=== PATIENT | female | born 1935 | race Caucasian/White ===

== ENCOUNTER 2016-03-16 12:38 | Inpatient (IN) | payer MEDICARE, BC ==
[~2016-03-16] VITALS: Ht 167.6 cm; Wt 76.6 kg
[~2016-03-16 12:38] MED LIST: ASPIRIN 32325 MG/TA1 PO; CELEXA 20MG20 MG/TAB PO; CEPHALEXIN250 M1 PO; COLACE 100100 MG/CAP PO; COZAAR 50MG50 MG/TAB PO; DITROPAN 5MG TAB5 MG PO; DULCOLAX S10 MG/SUPP RC; LIPITOR 40MG TA40 MG PO; LOVENOX 4040 MG/0.4 SQ; MEVACOR40 MG PO; MIRALAX PA17 GM/Dose PO; MULTI VITAMINS1 TAB PO; NYAMYC100000 U/G TOP; OS-CAL 500 + D1 TAB PO; PEPCID 20MG TAB20 MG PO; PRILOSEC 20MG20 MG PO; PROTONIX 40MG T40 MG PO; SENOKOT S 50 MG1 TAB PO; TRIPLE ANTIBIOTI1 TU TP; TYLENOL 325MG325 MG PO; ZOFRAN 4MG T4 MG/TAB PO
[2016-03-16 14:01] VITALS: BP 134/75; PULSE 79; TEMP 98.7
[2016-03-16] MEDS ORDERED: LOVENOX 4040 MG/0.4 SQ (14:21)
[2016-03-16] MEDS ORDERED: ZOFRAN 4MG T4 MG/TAB PO (14:23)
[2016-03-16] MEDS ORDERED: PRILOSEC 20MG20 MG PO (14:25)
[2016-03-16 17:38] VITALS: BP 117/73; PULSE 94; TEMP 98.9
[2016-03-17 05:22] VITALS: BP 163/91; PULSE 93; TEMP 98.1
[2016-03-17 15:42] LABS: PH 6 (5-8); SQUAMOUS EPITHELIAL None Seen /hpf; URINE APPEARANCE Cloudy; URINE BACTERIA Rare /hpf; URINE BILIRUBIN Negative (NEGATIVE); URINE BLOOD Negative (NEGATIVE); URINE COLOR Yellow; URINE GLUCOSE Negative (NEGATIVE); URINE KETONE Trace (NEGATIVE); URINE RBC 0-2 /hpf; URINE UROBILINOGEN >=4.0 mg/dL (NEGATIVE)
[2016-03-17 16:17] VITALS: BP 122/58; PULSE 79; TEMP 98.8
[2016-03-18 04:15] VITALS: BP 125/75; PULSE 87; TEMP 97.7
[2016-03-18 16:04] VITALS: BP 108/61; PULSE 77; TEMP 98.3
[2016-03-19 05:06] VITALS: BP 113/53; PULSE 85; TEMP 98.3
[2016-03-19 17:38] VITALS: BP 143/71; PULSE 77; TEMP 98.5
[2016-03-20 05:30] VITALS: BP 135/80; PULSE 76; TEMP 98.2
[2016-03-20 08:07] LABS: BASO % 0.9 % (0.0-2.0); EOS # 0.2 (0.0-0.7); EOS % 3.8 % (0-4.0); GRAN # 2.1 (1.4-6.5); GRAN % 50.1 % (42.2-75.2); LYMPH # 1.5 (1.2-3.4); LYMPH % 35.6 % (20.0-51.0); MEAN CELL VOLUME 81 fl (80.0-100.0); MEAN CORPUSCULAR HGB CONC 30 g/dl (33.0-37.0); MEAN PLATELET VOLUME 13.4 fl (7.4-10.4); MONO # 0.4 (0.1-0.6); MONO % 9.4 % (1.7-9.3); PLATELET COUNT 186 K/mm3 (130-400); REDCELL DISTRIBUTION WIDTH-CV 16.9 % (11.5-14.5); WHITE BLOOD COUNT 4.2 K/mm3 (4.8-10.8)
[2016-03-20 08:11] LABS: HEMATOCRIT 30.8 % (37.0-47.0); HEMOGLOBIN 9.3 g/dl (12.5-16.0); MEAN CORPUSCULAR HEMOGLOBIN 24 pg (27.0-31.0)
[2016-03-20 09:14] LABS: ADJUSTED CALCIUM 9.4 mg/dL (8.4-10.2); ALBUMIN 3.5 gm/dL (3.5-5.0); BILIRUBIN,TOTAL 0.7 mg/dL (0.0-1.0); CREATININE, serum 0.64 mg/dL (0.52-1.25); MAGNESIUM 2.1 mg/dL (1.6-2.3); PHOSPHOROUS 3.5 mg/dL (2.5-4.5); POTASSIUM 3.9 mmol/L (3.4-5.0); TOTAL PROTEIN 6.5 gm/dL (6.4-8.2)
[2016-03-20 16:16] VITALS: BP 108/75; PULSE 81; TEMP 99.1
[2016-03-21 05:38] VITALS: BP 108/62; PULSE 79; TEMP 98.1
[2016-03-21 18:31] VITALS: BP 105/72; PULSE 82; TEMP 98.7
[2016-03-21 20:30] VITALS: BP 143/76; PULSE 81; TEMP 98.8
[2016-03-22 06:21] VITALS: BP 152/88; PULSE 104; TEMP 98.5
[2016-03-22 17:05] VITALS: BP 133/85; PULSE 83; TEMP 97.7
[2016-03-23 03:31] VITALS: BP 125/87; PULSE 80; TEMP 98.6
[2016-03-23 16:36] VITALS: BP 134/64; PULSE 65; TEMP 98.3
[2016-03-24 04:34] VITALS: BP 141/82; PULSE 78; TEMP 97.3
[2016-03-24 18:58] VITALS: BP 129/115; PULSE 73; TEMP 97.9
[2016-03-25 06:08] VITALS: BP 144/66; PULSE 78; TEMP 97.8
[2016-03-25 16:33] VITALS: BP 132/84; PULSE 75; TEMP 98.7
[2016-03-26 04:32] VITALS: BP 132/83; PULSE 73; TEMP 98.1
[2016-03-26 17:44] VITALS: BP 116/66; PULSE 86; TEMP 98.5
[2016-03-27 06:07] VITALS: BP 131/68; PULSE 71; TEMP 97.7
[2016-03-27 07:57] LABS: ADJUSTED CALCIUM 9.5 mg/dL (8.4-10.2); ALBUMIN 3.7 gm/dL (3.5-5.0); CALCIUM 9.3 mg/dL (8.4-10.2); CREATININE, serum 0.66 mg/dL (0.52-1.25); MAGNESIUM 2.2 mg/dL (1.6-2.3); PHOSPHOROUS 4.1 mg/dL (2.5-4.5); POTASSIUM 4.1 mmol/L (3.4-5.0); TOTAL PROTEIN 6.9 gm/dL (6.4-8.2)
[2016-03-27 18:22] VITALS: BP 122/72; PULSE 92; TEMP 98.2
[2016-03-28 04:16] VITALS: BP 118/92; PULSE 64; TEMP 98.5
[2016-03-28 17:02] VITALS: BP 120/100; PULSE 52; TEMP 99
[2016-03-29 05:08] VITALS: BP 118/72; PULSE 78; TEMP 98.3
[2016-03-29 17:26] VITALS: BP 97/67; PULSE 87; TEMP 97.7
[2016-03-30 03:19] VITALS: BP 122/62; PULSE 76; TEMP 97.8
[2016-03-30 16:23] VITALS: BP 105/72; PULSE 70; TEMP 98.1
[2016-03-31 03:15] VITALS: BP 152/80; PULSE 76; TEMP 97.9
[2016-03-31 16:30] VITALS: BP 111/75; PULSE 73; TEMP 98
[2016-04-01 04:26] VITALS: BP 107/87; PULSE 76; TEMP 97.9
[2016-04-01 16:41] VITALS: BP 132/69; PULSE 72; TEMP 97.5
[2016-04-02 04:49] VITALS: BP 136/61; PULSE 72; TEMP 98
[2016-04-02 16:51] VITALS: BP 119/92; PULSE 78; TEMP 97.5
[2016-04-03 06:21] VITALS: BP 142/83; PULSE 75; TEMP 97.8
[2016-04-03 15:50] VITALS: BP 105/64; PULSE 77; TEMP 99.1
[2016-04-04 07:23] VITALS: BP 126/88; PULSE 79; TEMP 98.3
[2016-04-04] MEDS ORDERED: ASPIRIN 81M81 MG/TA2 PO (10:12)
[2016-04-04] MEDS ORDERED: FERROUS SU325 MG/TAB PO (10:18)
[2016-04-04] MEDS ORDERED: PLAVIX 75MG TAB75 MG PO ×2 (10:20→13:23)
[2016-04-04] MEDS ORDERED: FLONASEALLERGY NS (10:22)
[2016-04-04 13:35] VITALS: BP 126/88
== END 2016-04-04 14:52 | disposition home health service (06) | DRG 57 ==
PROVIDERS: Internal Medicine
DX: I69.351 Hemiplegia and hemiparesis following cerebral infarction affecting right dominant side (principal); E46 Unspecified protein-calorie malnutrition; K92.1 Melena; I69.391 Dysphagia following cerebral infarction; I10 Essential (primary) hypertension; Z85.3 Personal history of malignant neoplasm of breast; R13.10 Dysphagia, unspecified
CPT/HCPCS: 99222-AI; 99232-AI; 99239; J1650